=== PATIENT | female | born 1990 ===

== ENCOUNTER 2021-05-07 20:05 | Inpatient (IN) | payer SELFPAY ==
[2021-05-07] MEDS ORDERED: NALOXONE 0.4 MG/1 ML INJ IV PRN (21:51)
[2021-05-07] MEDS ORDERED: LIDOCAINE (2%) 20 MG/1 ML VIAL 20 ML MDV INFILTRATI ONE (21:51)
[2021-05-07] MEDS ORDERED: TERBUTALINE 1 MG/1 ML INJ SUB-Q PRN (21:51)
[2021-05-07] MEDS ORDERED: OXYTOCIN 10 UNIT/1 ML INJ IM PRN (21:51)
[2021-05-07] MEDS ORDERED: fentaNYL 100 MCG/2 ML INJ IV PRN (21:51)
[2021-05-07] MEDS ORDERED: PROMETHAZINE 25 MG TAB PO PRN (21:51)
[2021-05-07] MEDS ORDERED: miSOPROStol 200 MCG TAB PR PRN (21:51)
[2021-05-07] MEDS ORDERED: ePHEDrine SULFATE 50 MG/1 ML INJ IV PRN (21:51)
[2021-05-07] MEDS ORDERED: METHYLERGONOVINE MALEATE 0.2 MG/ML VIAL IM PRN (21:51)
[2021-05-07] MEDS ORDERED: BUTORPHANOL 2 MG/1 ML INJ IV PRN (21:51)
[2021-05-07] MEDS ORDERED: MINERAL OIL 30 ML ORAL LIQD PO PRN (21:51)
[2021-05-07] MEDS ORDERED: ONDANSETRON 4 MG/2 ML INJ IV PRN (21:51)
[2021-05-07] MEDS ORDERED: LOPERAMIDE 2 MG CAP PO PRN (21:51)
[2021-05-07] MEDS ORDERED: CARBOPROST TROMETHAMINE 250 MCG/1 ML INJ IM PRN (21:51)
--- NOTE | 2021-05-07 21:57 | History and Physical Report ---
History of Present Illness Date of examination: 05/07/21 Date of admission: 05/07/2021 Chief complaint: My stomach hurts. I'm having contractions. History of present illness: Cupola Operator Insulation line used for assistance d/t pt being [place]riot speaking. Pt is a 30 y.o. , [place] speaking patient @ 40.4 wks, who received care at an outside clinic, presented to triage with c/o abdominal pain. She came today to triage with her records which were reviewed. Past History Past Medical History: hematologic disorders (Anemia), other (Hep B positive in 2010. record reveiwed, negative this . ) Past Surgical History: no surgical history Family/Genetic History: none Social history: no significant social history - Obstetrical History Expected Date of Delivery: 05/04/21 Actual Gestation: 40 Week(s) 4 Day(s) : 3 Para: 2 Hx # Term Pregnancies: 2 Number of Pregnancies: 0 Spontaneous Abortions: 0 Induced : 0 Number of Living Children: 2 Medications and Allergies Allergies Allergy/AdvReac Type Severity Reaction Status Date / Time No Known Allergies Allergy Verified 05/07/21 22:02 Review of Systems All systems: negative - Vital Signs Vital signs: Vital Signs Pulse Pulse Ox 71 99 05/07/21 21:07 05/07/21 21:07 Temp Pulse Resp BP Pulse Ox 98.7 F 77 18 119/80 99 05/07/21 21:09 05/07/21 21:54 05/07/21 21:09 05/07/21 21:54 05/07/21 21:52 - Physical Exam Cardiovascular: Regular rate Lungs: Positive: Normal air movement Abdomen: Positive: normal appearance, soft Genitourinary (Female): Positive: normal external genitalia, normal perenium Uterus: Positive: normal size (40 weeks gestation) Extremities: Positive: normal - Obstetrical FHR: category 1 Uterine Contraction Monitor Mode: External Cervical Dilatation: 5.5 (per title curative specialist.) Cervical Effacement Percentage: 80 station: -3 Uterine Contraction Pattern: Regular Uterine Tone Measurement Phase: Resting Uterine Contraction Intensity: Moderate Results Result Diagrams: 05/07/21 22:10 All other labs normal. RECORDS REVIEWED: GBS NEGATIVE. O POSITIVE RUBELLA IMMUNE RPR NON REACTIVE HIV NEGATIVE HEP B NEGATIVE Assessment and Plan A: 30 y.o. @ 40.4 wks, labor. Cervical exam 5.5/80/-3 per title curative specialist. Hx of Hep B positive in 2011. Hx of anemia. - Patient Problems (1) Post-term , 40-42 weeks of gestation Onset Date: ~05/08/21 Current Visit: Yes Status: Acute Plan to address problem: Admit to labor delivery. Initiate IV. Draw admission labs. Pain management: IV pain medication. Anticipate . (2) History of anemia Current Visit: Yes Status: Acute Plan to address problem: Awaiting admission H/H and will monitor after delivery. (3) History of hepatitis B virus infection Current Visit: Yes Status: Acute Plan to address problem: NEGATIVE this . Per RELAY MOTORMAN only treat infant if mother is currently positive.
[2021-05-07] MEDS ORDERED: LACTATED RINGERS 1,000 ML IV SCH (22:00)
[2021-05-07] MEDS ORDERED: OXYTOCIN DRIP 30 UNITS/500 ML BAG IV SCH ×2 (22:00)
[2021-05-07] MEDS ORDERED: ACETAMINOPHEN 500 MG TAB PO PRN (22:04)
[2021-05-07 22:26] LABS: Hematocrit 37.2 % (30.3-42.9); Hemoglobin 12.2 gm/dl (10.1-14.3); Mean Corpuscular HGB Conc 33 % (30-34); Mean Corpuscular Volume 91 fl (79-97); Platelet Count 206 K/mm3 (140-440); Red Blood Count 4.08 M/mm3 (3.65-5.03); Red Cell Distribution Width 14.1 % (13.2-15.2)
--- NOTE | 2021-05-07 23:50 | Event Note ---
Date: 05/07/21 Pt with some pressure. Cervical exam /-1, BBOW felt. AROM for clear fluid. Cervical exam remained unchanged after AROM.
--- NOTE | 2021-05-08 01:08 | Progress Note ---
Assessment and Plan A: 30 y.o. @ 40.5 wks, active labor. Cervical exam: . P: Continue expectant management as patient is liv every 2 minutes enmanuel Vences. Anticipate . Subjective - Subjective Date of service: 05/08/21 Principal diagnosis: IUP @ 40.4 wks, active labor Patient reports: other (Feeling vaginal pressure) Objective - Vital Signs Vital Signs: Vital Signs - 12hr 05/07/21 05/07/21 05/07/21 21:07 21:08 21:09 Temperature 98.7 F Pulse Rate 71 66 78 Respiratory 18 Rate Blood Pressure 130/88 Blood Pressure 128/90 [Left] O2 Sat by Pulse 99 99 Oximetry O2 Sat by Pulse Oximetry [ Bilateral Throughout] 05/07/21 05/07/21 05/07/21 21:12 21:17 21:22 Temperature Pulse Rate 70 74 71 Respiratory Rate Blood Pressure Blood Pressure [Left] O2 Sat by Pulse 99 99 99 Oximetry O2 Sat by Pulse Oximetry [ Bilateral Throughout] 05/07/21 05/07/21 05/07/21 21:23 21:27 21:32 Temperature Pulse Rate 68 80 75 Respiratory Rate Blood Pressure 128/90 Blood Pressure [Left] O2 Sat by Pulse 97 98 Oximetry O2 Sat by Pulse Oximetry [ Bilateral Throughout] 05/07/21 05/07/21 05/07/21 21:37 21:40 21:42 Temperature Pulse Rate 88 77 80 Respiratory Rate Blood Pressure 129/79 Blood Pressure [Left] O2 Sat by Pulse 99 99 Oximetry O2 Sat by Pulse Oximetry [ Bilateral Throughout] 05/07/21 05/07/21 05/07/21 21:47 21:52 21:54 Temperature Pulse Rate 75 75 77 Respiratory Rate Blood Pressure 119/80 Blood Pressure [Left] O2 Sat by Pulse 99 99 Oximetry O2 Sat by Pulse Oximetry [ Bilateral Throughout] 05/07/21 05/07/21 05/07/21 21:57 22:02 22:07 Temperature Pulse Rate 74 76 70 Respiratory Rate Blood Pressure Blood Pressure [Left] O2 Sat by Pulse 99 98 99 Oximetry O2 Sat by Pulse Oximetry [ Bilateral Throughout] 05/07/21 05/07/21 05/07/21 22:09 22:12 22:17 Temperature Pulse Rate 73 82 81 Respiratory Rate Blood Pressure 133/84 Blood Pressure [Left] O2 Sat by Pulse 98 99 Oximetry O2 Sat by Pulse Oximetry [ Bilateral Throughout] 05/07/21 05/07/21 05/07/21 22:30 22:32 22:37 Temperature 97.2 F L Pulse Rate 82 85 Respiratory 16 Rate Blood Pressure Blood Pressure 124/83 [Left] O2 Sat by Pulse 99 99 Oximetry O2 Sat by Pulse 99 Oximetry [ Bilateral Throughout] 05/07/21 05/07/21 05/07/21 22:42 22:47 22:52 Temperature Pulse Rate 95 H 79 81 Respiratory Rate Blood Pressure Blood Pressure [Left] O2 Sat by Pulse 99 98 99 Oximetry O2 Sat by Pulse Oximetry [ Bilateral Throughout] 05/07/21 05/07/21 05/07/21 22:57 23:02 23:07 Temperature Pulse Rate 85 83 76 Respiratory Rate Blood Pressure Blood Pressure [Left] O2 Sat by Pulse 97 99 99 Oximetry O2 Sat by Pulse Oximetry [ Bilateral Throughout] 05/07/21 05/07/21 05/07/21 23:12 23:17 23:22 Temperature Pulse Rate 77 86 78 Respiratory Rate Blood Pressure Blood Pressure [Left] O2 Sat by Pulse 99 100 98 Oximetry O2 Sat by Pulse Oximetry [ Bilateral Throughout] 05/07/21 05/07/21 05/07/21 23:27 23:32 23:37 Temperature Pulse Rate 93 H 89 93 H Respiratory Rate Blood Pressure Blood Pressure [Left] O2 Sat by Pulse 99 98 98 Oximetry O2 Sat by Pulse Oximetry [ Bilateral Throughout] 05/07/21 05/07/21 05/07/21 23:42 23:47 23:52 Temperature Pulse Rate 86 81 86 Respiratory Rate Blood Pressure Blood Pressure [Left] O2 Sat by Pulse 99 99 97 Oximetry O2 Sat by Pulse Oximetry [ Bilateral Throughout] 05/07/21 05/08/21 05/08/21 23:57 00:02 00:07 Temperature Pulse Rate 84 89 104 H Respiratory Rate Blood Pressure Blood Pressure [Left] O2 Sat by Pulse 96 97 97 Oximetry O2 Sat by Pulse Oximetry [ Bilateral Throughout] 05/08/21 05/08/21 05/08/21 00:12 00:17 00:22 Temperature Pulse Rate 82 80 82 Respiratory Rate Blood Pressure Blood Pressure [Left] O2 Sat by Pulse 99 99 97 Oximetry O2 Sat by Pulse Oximetry [ Bilateral Throughout] 05/08/21 05/08/21 05/08/21 00:26 00:27 00:32 Temperature Pulse Rate 98 H 74 82 Respiratory Rate Blood Pressure Blood Pressure [Left] O2 Sat by Pulse 94 99 98 Oximetry O2 Sat by Pulse Oximetry [ Bilateral Throughout] 05/08/21 05/08/21 05/08/21 00:37 00:40 00:42 Temperature Pulse Rate 85 93 H 82 Respiratory Rate Blood Pressure Blood Pressure [Left] O2 Sat by Pulse 100 92 97 Oximetry O2 Sat by Pulse Oximetry [ Bilateral Throughout] 05/08/21 05/08/21 05/08/21 00:46 00:47 00:52 Temperature Pulse Rate 92 H 95 H 77 Respiratory Rate Blood Pressure Blood Pressure [Left] O2 Sat by Pulse 93 97 100 Oximetry O2 Sat by Pulse Oximetry [ Bilateral Throughout] 05/08/21 05/08/21 00:57 01:02 Temperature Pulse Rate 80 80 Respiratory Rate Blood Pressure Blood Pressure [Left] O2 Sat by Pulse 100 100 Oximetry O2 Sat by Pulse Oximetry [ Bilateral Throughout] - Exam Narrative Exam: Use operations expert phone for assistance. Pt with the urge to push. Cervical exam with contractions. Explained to patient that it is not time to push. Pt continues to decline epidural. Breasts: deferred Cardiovascular: Regular rate Lungs: Normal air movement FHR: category 1 Uterine Contraction Monitor Mode: External Cervical Dilatation: 9 Cervical Effacement Percentage: 90 station: -1 Uterine Contraction Pattern: Regular Uterine Tone Measurement Phase: Resting Uterine Contraction Intensity: Moderate - Labs Labs: Laboratory Results - last 24 hr 05/07/21 05/07/21 05/07/21 22:10 22:10 22:10 WBC 10.9 RBC 4.08 Hgb 12.2 Hct 37.2 MCV 91 MCH 30 MCHC 33 RDW 14.1 Plt Count 206 Syphilis IgG Antibody Nonreactive Blood Type O POSITIVE Antibody Screen Negative
[2021-05-08] MEDS ORDERED: LIDOCAINE (2%) 20 MG/1 ML VIAL 20 ML MDV INFILTRATI ONE (02:09)
--- NOTE | 2021-05-08 03:07 | Procedure Note ---
OB Delivery Note - Delivery Date of Delivery: 05/08/21 Fashion Patternmaker: CARTER ISAAC Estimated blood loss: 200cc - Vaginal Delivery presentation: vertex Delivery position: OA Intrapartum events: none Delivery induction: none Delivery augmentation: rupture of membranes Delivery monitor: external FHT, external uterine Route of delivery: Delivery placenta: spontaneous Delivery cord: 3 umbilical vessels Episiotomy: none Delivery laceration: none Anesthesia: intravenous Delivery comments: of viable female infant over intact perineum. to mother's abdomen for skin to skin. Cord clamped. Cut by FOC. Spontaneous delivery of placenta, intact, 3 vessels, complete. Fundus firm, minimal bleeding noted. Perineum and vagina inspected, no lacerations noted. Apgars 8,9. weight 7-3. EBL 200ml. Infant and mother left in stable condition in care of RN. Sponges and instruments counted with RN X2 and correct X2.
[2021-05-08] MEDS ORDERED: oxyCODONE /ACETAMINOPHEN 5-325MG TAB PO PRN (03:08)
[2021-05-08] MEDS ORDERED: miSOPROStol 100 MCG TAB PR PRN (03:08)
[2021-05-08] MEDS ORDERED: ONDANSETRON 4 MG/2 ML INJ IV PRN (03:08)
[2021-05-08] MEDS ORDERED: PROMETHAZINE 25 MG TAB PO PRN (03:08)
[2021-05-08] MEDS ORDERED: MAGNESIUM HYDROXIDE (MOM) ORAL LIQD UDC PO PRN (03:08)
[2021-05-08] MEDS ORDERED: diphenhydrAMINE 25 MG CAP PO PRN (03:08)
[2021-05-08] MEDS ORDERED: WITCH HAZEL/ GLYCERIN PAD TP PRN (03:08)
[2021-05-08] MEDS ORDERED: LANOLIN/ZINC/DIMETHICONE (LANSINOH) 7 GM TP PRN ×2 (03:08)
[2021-05-08] MEDS ORDERED: PROMETHAZINE 25 MG RECT SUPP PR PRN (03:08)
[2021-05-08] MEDS ORDERED: BENZOCAINE/MENTHOL 20/0.5% TOP SPRAY 56 GM TP PRN (03:08)
[2021-05-08] MEDS ORDERED: ACETAMINOPHEN 500 MG TAB PO PRN (03:30)
[2021-05-08] MEDS ORDERED: OXYTOCIN DRIP 30 UNITS/500 ML BAG IV SCH (04:00)
[2021-05-08] MEDS: DOCUSATE SODIUM 100 MG CAP PO SCH ×2 (10:45→21:31)
[2021-05-08] MEDS: PRENATAL VIT27-FE FUMARATE-FOLIC ACID VIT TAB PO SCH (10:45)
[2021-05-08] MEDS: IBUPROFEN 800 MG TAB PO SCH ×3 (10:45→23:09)
--- NOTE | 2021-05-08 13:19 | Event Note ---
Date: 05/08/21 pt resting <12hrs post delivery, no complaints. Bonding well with infant. VSSAF. Continue pathway. Anticipate d/c home tomorrow.
[2021-05-08 19:36] LABS: Hematocrit 32.9 % (30.3-42.9); Hemoglobin 10.8 gm/dl (10.1-14.3)
[2021-05-09] MEDS: IBUPROFEN 800 MG TAB PO SCH ×4 (05:15→23:28)
[2021-05-09] MEDS ORDERED: TETANUS,DIPH,PERTUSS(ACELL) VACCINE 0.5 ML SYRINGE IM ONE (06:00)
[2021-05-09] MEDS: DOCUSATE SODIUM 100 MG CAP PO SCH ×2 (10:08→21:07)
[2021-05-09] MEDS: PRENATAL VIT27-FE FUMARATE-FOLIC ACID VIT TAB PO SCH (10:08)
--- NOTE | 2021-05-09 10:12 | Progress Note ---
Assessment and Plan - Patient Problems (1) (spontaneous vaginal delivery) Current Visit: Yes Status: Acute Plan to address problem: - -d/c home in the am if remains AFVSS Subjective - Subjective Date of service: 05/09/21 Principal diagnosis: PPD #1 S/P Interval history: Pt doing well w/o complaints today. She does state her pain is welll controlled. She desires to take shower and for IV to be removed. I advised pt that I would inform nurse of these concerns and that the INT can be removed at this time or covered so that she can shower as she is stable. She expressed understanding. Patient reports: appetite normal, voiding normally, pain well controlled, no dizzy ambulation [place]: doing well Objective - Vital Signs Latest vital signs: Vital Signs Temp Pulse Resp BP BP Pulse Ox Pulse Ox 05/09/21 08:30 97.7 F 71 20 124/82 05/09/21 05:14 98 05/09/21 03:30 98 05/09/21 02:25 98 05/08/21 23:32 98.2 F 73 20 113/66 98 05/08/21 23:08 98 05/08/21 21:30 98 05/08/21 19:55 98 05/08/21 16:03 97.9 F 65 17 116/69 99 05/08/21 11:48 99.2 F 80 17 117/73 97 05/08/21 10:45 16 Intake and Output 05/08/21 05/09/21 05/09/21 22:59 06:59 14:59 Intake Total 540 360 Balance 540 360 Intake: Oral 540 360 Other: Total, Intake Amount 240 360 # Voids Void 1 1 1 - Exam Cardiovascular: Present: Normal S1, Normal S2 Lungs: Present: Normal air movement Abdomen: Present: normal appearance, soft. Absent: distention, tenderness, guarding Uterus: Present: normal, firm, fundal height below umbilicus. Absent: boggi ness, tenderness Extremities: Present: normal. Absent: tenderness, edema Deep Tendon Reflex Grade: Normal +2
[2021-05-10] MEDS: IBUPROFEN 800 MG TAB PO SCH (05:16)
[2021-05-10] MEDS: DOCUSATE SODIUM 100 MG CAP PO SCH (09:59)
[2021-05-10] MEDS: PRENATAL VIT27-FE FUMARATE-FOLIC ACID VIT TAB PO SCH (10:00)
--- NOTE | 2021-05-10 11:40 | Discharge Summary ---
Providers - Providers Date of Admission: 05/07/21 21:52 Date of discharge: 05/10/21 Attending physician: SLIM CHAVEZ Primary care physician: SLIM CHAVEZ Hospitalization Reason for admission: Labor Condition: Good Pertinent studies: post delivery H&H 10.8/32.9 Procedures: Hospital course: uncomplicated and course Disposition: 01 HOME / SELF CARE / HOMELESS Final Discharge Diagnosis (Prints w/discharge instructions): vaginal Time spent for discharge: 20 - Discharge Diagnoses (1) (spontaneous vaginal delivery) Status: Acute Core Measure Documentation - Palliative Care Palliative Care/ Comfort Measures: Not Applicable - Core Measures Any of the following diagnoses?: none Exam - Constitutional Vitals: Temp Pulse Resp BP Pulse Ox 97.8 F 72 20 137/80 98 05/10/21 07:55 05/10/21 07:55 05/09/21 23:39 05/10/21 07:55 05/10/21 08:00 General appearance: Present: no acute distress, well-nourished - EENT Eyes: Present: PERRL ENT: hearing intact, clear oral mucosa - Neck Neck: Present: supple, normal ROM - Respiratory Respiratory effort: normal Respiratory: bilateral: CTA - Cardiovascular Rhythm: regular Heart Sounds: Absent: rub, click - Extremities Extremities: No edema - Abdominal General gastrointestinal: Present: soft, non-tender, non-distended, normal bowel sounds Female genitourinary: Present: normal - Integumentary Integumentary: Present: clear, warm, dry - Musculoskeletal Musculoskeletal: gait normal, strength equal bilaterally - Psychiatric Psychiatric: appropriate mood/affect, intact judgment & insight - Neurologic Neurologic: CNII-XII intact, moves all extremities - Additional findings Additional findings: Lochia scant, fundus firm Plan Activity: no restrictions Diet: regular Care Plan Goals: [] Smoking cessation referral if applicable(refer to patient education folder for contact #) [] Refer to [facility] Booklet Call your doctor immediately for: * Fever > 100.5 * Heavy vaginal bleeding ( >1 pad per hour) * Severe persistent headache * Shortness of breath * Reddened, hot, painful area to leg or breast * Drainage or odor from incision. Follow up with: SLIM CHAVEZ MD [Primary Care Provider] - 6 Weeks (Congratulations! Please call [phone] to schedule your visit in 6 weeks. Call for any questions or concerns.) Forms: C Discharge Summary
[2021-05-10 15:02] VITALS: BP 138/86
== END 2021-05-10 14:50 | disposition home or self-care (01) | DRG 807 ==
LOC: TRG 20:05 → APU 20:08 → LD 21:52 → TRG 23:57 → OB 05-08 05:31
PROVIDERS: ADMIT Obstetrics & Gynecology; ATTEND Obstetrics & Gynecology
PROC: 10E0XZZ Delivery of Products of Conception, External Approach (ICD-10-PCS; principal; 2021-05-08)
DX: O48.0 Post-term pregnancy (principal); Z37.0 Single live birth; Z3A.40 40 weeks gestation of pregnancy; Z20.822 Contact with and (suspected) exposure to COVID-19
CPT/HCPCS: 36415; 59025; 85014; 85018; 85027; 86592; 86850; 86900; 86901; G0378; J0595; J3010; U0003